=== PATIENT | female | born 1960 | race African-American/Black ===

== ENCOUNTER 2017-05-11 13:58 | Emergency (ER) | payer OTHER ==
--- NOTE | 2017-05-11 15:10 | XRay Report ---
LEFT WRIST RADIOGRAPHS INDICATION: Injury. COMPARISON: None similar. FINDINGS: AP, lateral and oblique left wrist radiographs demonstrate distal radius metaphyseal Colles' fracture with overlying soft tissue swelling. No definite articular involvement. Preserved distal radioulnar articulation and carpal appearance. CONCLUSION: Left wrist Colles' fracture, as described. Thank you for the opportunity to participate in this patient's care.
[2017-05-11] MEDS ORDERED: TORADOL IV ONE (16:38)
[2017-05-11] MEDS ORDERED: MORPHINE IV ONE (16:38)
--- NOTE | 2017-05-11 17:35 | Emergency Department Report ---
ED Upper Extremity Inj HPI - General Chief Complaint: Extremity Injury, Upper Stated Complaint: FALL / L WRIST PAIN Time Seen by Provider: 05/11/17 16:29 Source: patient Mode of arrival: Ambulatory Limitations: No Limitations - History of Present Illness MD Complaint: Injury to:: left, wrist -: This morning Other Injuries: none Handedness: right Place: outdoors Severity scale (0 -10): 8 Improves With: none Worsens With: movement of extremity Context: fall (patient was walking and slipped on some ice and fell) Associated Symptoms: denies other symptoms Treatments Prior to Arrival: cold therapy, bandage - Related Data Home Medications Medication Instructions Recorded Confirmed Last Taken Meloxicam 15 mg PO DAILY 07/02/13 07/02/13 06/20/13 Omeprazole 20 mg PO DAILY 07/02/13 07/02/13 06/20/13 Previous Rx's Medication Instructions Recorded Last Taken Type HYDROcodone/APAP 5-325 [Benham 1 each PO Q6HR PRN #15 tablet 05/11/17 Unknown Rx 5/325] Ibuprofen [Motrin] 600 mg PO Q8H PRN #20 tablet 05/11/17 Unknown Rx Allergies Allergy/AdvReac Type Severity Reaction Status Date / Time shrimp Allergy Shortness Uncoded 05/11/17 14:35 of Breath ED Review of Systems ROS: Stated complaint: FALL / L WRIST PAIN Other details as noted in HPI Comment: All other systems reviewed and negative ED Past Medical Hx - Past Medical History Hx Congestive Heart Failure: No Hx Diabetes: No Hx GERD: Yes Hx Arthritis: Yes (knees) Hx Asthma: No Hx COPD: No - Surgical History Hx Breast Surgery: Yes (lift toño) - Social History Smoking Status: Never Smoker Substance Use Type: None - Medications Home Medications: Home Medications Medication Instructions Recorded Confirmed Last Taken Type Meloxicam 15 mg PO DAILY 07/02/13 07/02/13 06/20/13 History Omeprazole 20 mg PO DAILY 07/02/13 07/02/13 06/20/13 History HYDROcodone/APAP 5-325 [Benham 1 each PO Q6HR PRN #15 tablet 05/11/17 Unknown Rx 5/325] Ibuprofen [Motrin] 600 mg PO Q8H PRN #20 tablet 05/11/17 Unknown Rx ED Physical Exam - General Limitations: No Limitations General appearance: alert, in no apparent distress - Head Head exam: Present: atraumatic, normocephalic - Eye Eye exam: Present: normal appearance - ENT ENT exam: Present: mucous membranes moist - Neck Neck exam: Present: normal inspection - Respiratory Respiratory exam: Present: normal lung sounds bilaterally. Absent: respiratory distress - Cardiovascular Cardiovascular Exam: Present: regular rate, normal rhythm. Absent: systolic murmur, diastolic murmur, rubs, gallop - GI/Abdominal GI/Abdominal exam: Present: soft, normal bowel sounds - Extremities Exam Extremities exam: Present: normal inspection, tenderness, joint swelling ( swelling at the wrist on the left) - Back Exam Back exam: Present: normal inspection - Neurological Exam Neurological exam: Present: alert, oriented X3 - Psychiatric Psychiatric exam: Present: normal affect, normal mood - Skin Skin exam: Present: warm, dry, intact, normal color. Absent: rash ED Course Vital Signs 05/11/17 05/11/17 05/11/17 14:36 16:46 16:47 Temperature 98.4 F Pulse Rate 80 Respiratory 16 18 18 Rate Blood Pressure 142/95 O2 Sat by Pulse 98 Oximetry ED Medical Decision Making - Radiology Data Radiology results: report reviewed Subtle left-sided Colle's fracture - Medical Decision Making Patient is a 57-year-old English female who is presenting with left wrist fracture. Patient's wrist was splinted with a sugar tong splint. Patient states case was discussed with Dr. Reid with orthopaedics and he will see the patient in clinic Critical care attestation.: If time is entered above; I have spent that time in minutes in the direct care of this critically ill patient, excluding procedure time. ED Disposition Clinical Impression: Wrist fracture, left Qualifiers: Encounter type: initial encounter Fracture type: closed Qualified Code(s): S62.102A - Fracture of unspecified carpal bone, left wrist, initial encounter for closed fracture Disposition: DC-01 TO HOME OR SELFCARE Is pt being admited?: No Does the pt Need Aspirin: No Condition: Good Instructions: Wrist Fracture in Adults (ED) Prescriptions: HYDROcodone/APAP 5-325 [Benham 5/325] 1 each PO Q6HR PRN #15 tablet PRN Reason: Pain Ibuprofen [Motrin] 600 mg PO Q8H PRN #20 tablet PRN Reason: Pain Referrals: ADÁN REID MD [Staff Physician] - 3-5 Days
[2017-05-11 17:51] VITALS: BP 130/80
== END 2017-05-11 17:50 | disposition home or self-care (01) ==
LOC: ED 13:58
DX: S62.102A Fracture of unspecified carpal bone, left wrist, initial encounter for closed fracture (principal); K21.9 Gastro-esophageal reflux disease without esophagitis; M19.90 Unspecified osteoarthritis, unspecified site; Z91.013 Allergy to seafood; W00.2XXA Other fall from one level to another due to ice and snow, initial encounter; Y93.89 Activity, other specified; Y92.89 Other specified places as the place of occurrence of the external cause; Y99.8 Other external cause status
CPT/HCPCS: 29125; 73110; 96374; 96375; 99284; J1885; J2270

== ENCOUNTER 2017-05-19 08:40 | Day surgery (SDC) | payer OTHER ==
[~2017-05-19 08:40] MED LIST: ANCEF/STERILE WATER 2 GM/20 ML IV NR
[2017-05-19] MEDS ORDERED: LACTATED RINGERS 1,000 ML ONE (09:37)
--- NOTE | 2017-05-19 09:43 | Anesthesia Day of Surgery ---
Anesthesia Day of Surgery - Day of Surgery Patient Examined: Yes Patient H&P Reviewed: Yes Patient is NPO: Yes
--- NOTE | 2017-05-19 09:45 | Anesthesia Consultation ---
Anesthesia Consult and Med Hx Date of service: 05/19/17 - Airway Anesthetic Teeth Evaluation: Good (loose left molar) ROM Head & Neck: Adequate Mental/Hyoid Distance: Adequate Mallampati Class: Class III Intubation Access Assessment: Probably Good - Pulmonary Exam CTA: Yes - Cardiac Exam Cardiac Exam: RRR - Pre-Operative Health Status ASA Pre-Surgery Classification: ASA2, ASA3 Proposed Anesthetic Plan: General Nerve Block: supraclavicular - Pulmonary Hx Smoking: No Hx Asthma: No COPD: No Hx Pneumonia: No Hx Sleep Apnea: No (FERDINAND PRE SCREEN LOW RISK.) - Cardiovascular System Hx Hypertension: No (HL) - Gastrointestinal Hx Gastroesophageal Reflux Disease: Yes (Occasional no meds currently) - Endocrine Hx End Stage Renal Disease: No - Other Systems Hx Cancer: No (vaginal cancer, treated 2yrs ago)
[2017-05-19] MEDS ORDERED: DILAUDID IV PRN (09:48)
[2017-05-19] MEDS ORDERED: MARCAINE 0.5% 0 ML INFILTRATI ONE (09:59)
[2017-05-19] MEDS ORDERED: DECADRON ONE ×2 (09:59→11:27)
[2017-05-19] MEDS ORDERED: XYLOCAINE 1% 20 mL ONE (10:00)
[2017-05-19] MEDS ORDERED: VERSED IV NR (10:00)
[2017-05-19] MEDS ORDERED: PEPCID IV NR (10:00)
[2017-05-19] MEDS ORDERED: SUBLIMAZE IV NR (10:00)
[2017-05-19] MEDS ORDERED: LACTATED RINGERS 1,000 ML IV SCH (10:00)
[2017-05-19] MEDS ORDERED: ZOFRAN IV PRN (10:30)
[2017-05-19] MEDS ORDERED: DIPRIVAN 10 MG/ML IV ONE (10:48)
[2017-05-19] MEDS ORDERED: XYLOCAINE MPF 2% ONE (10:48)
[2017-05-19] MEDS ORDERED: SUBLIMAZE ONE (11:03)
[2017-05-19] MEDS ORDERED: ZOFRAN ONE (11:28)
[2017-05-19] MEDS ORDERED: MARCAINE 0.5% 30 ML INFILTRATI ONE (11:35)
[2017-05-19] MEDS ORDERED: NEOSPORIN GU IR ONE ×2 (11:35→12:00)
[2017-05-19] MEDS ORDERED: NACL 0.9% IR ONE (12:00)
--- NOTE | 2017-05-19 12:30 | Procedure Note ---
Date of procedure: 05/19/17 Pre-op diagnosis: displaced left colles fracture Post-op diagnosis: same Procedure: Open reduction internal fixation left distal radius Procedure The patient was brought to the OR after being given a axillary nerve block for postop pain management, she was placed on the OR table in the supine position following induction with the Edgar anesthesia the patient's left upper extremity was prepped and draped in the usual sterile manner. A timeout procedure was done to identify the patient and the correct operative site. A volar incision was made along the distal radius in line with the flexor carpi radialis tendon visit then taken down sharply through skin and subcutaneous the tendon was exceeded and retracted in a radial direction The quadratus tendon was incised and a periosteal elevator was used to remove the surrounding soft tissue from the fracture site. She was noted to have a moderate degree of comminution along the volar surface Using gentle manipulation the fracture was then reduced and temporarily fixed using K wire. Biomet cross LOC left mineral miniplate was applied to the volar surface of the distal radius. Screws of appropriate length were inserted both proximally as well as distally into the distal radiuis using C-arm fluoroscopy, AP and lateral views were obtained and showed good reduction at the fracture and placement of the hardware Wound was copiously irrigated and was closed in a standard routine fashion. Dressings were applied as well as a well padded volar splint the patient tolerated the procedure there were no complications Anesthesia: MAC, regional Surgeon: ADÁN PHELPS (Joss Siu [employer] tester assistant) Estimated blood loss: minimal Pathology: none Condition: stable Disposition: PACU
--- NOTE | 2017-05-19 12:46 | XRay Report ---
LEFT WRIST, 2 VIEWS History: Left radius fracture. Findings: 2 fluoroscopic images of the left wrist were captured during surgery. The images demonstrate open reduction and internal fixation of a comminuted distal left radial fracture. Alignment appears anatomic. No additional fractures are demonstrated. Impression: Open reduction and internal fixation of the distal left radial fracture.
[2017-05-19] MEDS ORDERED: NORCO 7.5/325 PO PRN (13:05)
--- NOTE | 2017-05-19 14:44 | Post Anesthesia Evaluation ---
- Post Anesthesia Evaluation Patient Participated: Yes Airway Patent: Yes Stable Respiratory Function: Yes Nausea/Vomiting: No Temp > 96.8F: Yes Pain Manageable: Yes Adequeate Hydration: Yes Anesthesia Complications: No
[2017-05-19 15:10] VITALS: BP 147/98
== END 2017-05-19 15:02 | disposition home or self-care (01) ==
LOC: OR 08:40
PROVIDERS: ATTEND Orthopaedic Surgery
DX: S52.532A Colles' fracture of left radius, initial encounter for closed fracture (principal); E78.5 Hyperlipidemia, unspecified; W00.0XXA Fall on same level due to ice and snow, initial encounter; Y93.89 Activity, other specified; Y92.89 Other specified places as the place of occurrence of the external cause; Y99.8 Other external cause status; Z85.44 Personal history of malignant neoplasm of other female genital organs
CPT/HCPCS: 25607; 64450; 73100; C1713; J0690; J1100; J2250; J2405; J2704; J3010; J7120

== ENCOUNTER 2018-05-16 12:10 | Outpatient (CLI) | payer OTHER ==
--- NOTE | 2018-05-16 13:36 | XRay Report ---
LEFT WRIST, 4 views: HISTORY: Pain in left wrist. The comminuted distal radial fracture has been internally fixated with metal plate and screws. Alignment is unchanged since the operative films dated 05/19/17. There is normal articulation of the carpal bones. No new acute process is demonstrated. IMPRESSION: No change since 05/19/17.
== END 2018-05-16 12:11 | disposition home or self-care (01) ==
LOC: XRAY 12:10
PROVIDERS: ATTEND Orthopaedic Surgery
DX: M25.532 Pain in left wrist (principal); I10 Essential (primary) hypertension; E78.00 Pure hypercholesterolemia, unspecified; K21.9 Gastro-esophageal reflux disease without esophagitis; M19.90 Unspecified osteoarthritis, unspecified site; Z90.12 Acquired absence of left breast and nipple; Z90.710 Acquired absence of both cervix and uterus